=== PATIENT | female | born 1930 | race African-American/Black ===

== ENCOUNTER 2018-04-16 12:49 | Emergency (ER) | payer MEDICARE ==
[~2018-04-16] VITALS: Ht 160 cm; Wt 48.5 kg
[~2018-04-16 12:49] MED LIST: AMLO10TA2 PO; ASPI-630 PO; FURO40TA4 PO; HYDR-971 PO; LACT1CAP25 PO; LOSA50TA6 PO; METO-239 PO; PANT40TA5 PO; POTA20TA82 PO; SIMV20TA3 PO; TIMO5SOL10 OP; TRAV5DRO OP
[2018-04-16 14:12] LABS: BASO % 1 % (0-3); EOS # 0.1 x10^3/uL (0.0-0.7); EOS % 2 % (0-3); HEMOGLOBIN 9.9 g/dL (12.0-15.5); LYMPH # 0.6 x10^3/uL (1.0-4.8); LYMPH % 12 % (24-48); MEAN CORPUSCULAR HEMOGLOBIN 29 pg (25-35); MEAN CORPUSCULAR HGB CONC 33 g/dL (31-37); MEAN CORPUSCULAR VOLUME 89 fL (79-100); MONO # 0.4 x10^3/uL (0.0-1.1); MONO % 7 % (0-9); NEUT # 4.2 x10^3uL (1.8-7.7); NEUT % 78 % (31-73); PLATELET COUNT 285 x10^3/uL (140-400); RED BLOOD COUNT 3.36 x10^6/uL (3.50-5.40); RED CELL DISTRIBUTION WIDTH 15.9 % (11.5-14.5); WHITE BLOOD COUNT 5.4 x10^3/uL (4.0-11.0)
[2018-04-16 14:14] LABS: CALCIUM 8.8 mg/dL (8.5-10.1); CREATININE 1.1 mg/dL (0.6-1.0); GFR 56.9; POTASSIUM 3.3 mmol/L (3.5-5.1)
--- NOTE | 2018-04-16 14:14 | EKG ---
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 History: : 1930 Requested By: FLOYD ISSA Order Number: [id number] Reading MD: Vasile Cuello MD Measurements Intervals Thornton Rate: 92 P: 26 PA: 140 QRS: -119 QRSD: 152 T: 81 QT: 412 QTc: 515 Interpretive Statements SINUS RHYTHM V-PACING Electronically Signed On 04-16-2018 17:15:29 CDT by Vasile Cuello MD
[2018-04-16 14:20] LABS: ALBUMIN 2.9 g/dL (3.4-5.0); ALBUMIN/GLOBULIN RATIO 0.7 (1.0-1.7); TOTAL BILIRUBIN 0.2 mg/dL (0.2-1.0); TOTAL PROTEIN 7.2 g/dL (6.4-8.2)
--- NOTE | 2018-04-16 14:29 | RAD ---
Chest, 2 views, 04/16/2018: HISTORY: Left-sided chest pain and soreness Comparison is made to a study from 04/08/2014. The heart is mildly enlarged. There is calcific plaquing and tortuosity of the thoracic aorta. The pulmonary vascularity is normal. No pulmonary infiltrate is seen. There is no evidence of pleural fluid or pneumothorax. There are old bilateral rib fractures. There are scattered spurs in the spine. IMPRESSION: 1. Mild cardiomegaly and aortic atherosclerosis. 2. No acute infiltrates. Electronically signed by: Darren Schilling MD (04/16/2018 2:25 PM) [facility]
[2018-04-16 15:30] VITALS: BP 152/78
--- NOTE | 2018-04-16 15:45 | PHYS DOC ---
Past Medical History Past Medical History: Arthritis, Hypertension Past Surgical History: Hysterectomy, Pacemaker Additional Past Surgical Histo: GALLSTONES Alcohol Use: None Drug Use: None Adult General Chief Complaint Chief Complaint: CHEST PAIN HPI HPI Patient is a 87 year old F who presents with chest pain about 1 week ago. Patient reports her symptoms lasted for about 4 hours. Since then, she has pain with certain movements and deep breathing. She denies any shortness breath or diaphoresis. She does have a history of cardiomyopathy with a pacemaker. Review of Systems Review of Systems Constitutional: Denies fever or chills [] Respiratory: Denies cough or shortness of breath [] Cardiovascular: Reports chest pain with deep breath or movement GI: Denies abdominal pain, nausea, vomiting : Denies dysuria or hematuria [] Musculoskeletal: Denies back pain or joint pain [] Integument: Denies rash or skin lesions [] Neurologic: Denies headache, focal weakness or sensory changes [] All other systems were reviewed and found to be within normal limits, except as documented in this note. Allergies Allergies Allergies Coded Allergies Type Severity Reaction Last Updated Verified No Known Drug Allergies 03/06/14 No Physical Exam Physical Exam Constitutional: Well developed, well nourished, no acute distress, non-toxic appearance. [] HENT: Normocephalic, atraumatic Eyes: PERRLA, EOMI, conjunctiva normal, no discharge. [] Neck: Normal range of motion, no tenderness, supple, no stridor. [] Cardiovascular:Heart rate regular rhythm, no murmur [] Lungs & Thorax: Bilateral breath sounds clear to auscultation [] Abdomen: Bowel sounds normal, soft, no tenderness, no masses, no pulsatile masses. [] Skin: Warm, dry, no erythema, no rash. [] Neurologic: Alert and oriented X 3, normal motor function, normal sensory function, no focal deficits noted. [] Psychologic: Affect normal, judgement normal, mood normal. [] Current Patient Data Vital Signs Vital Signs Date Time Temp Pulse Resp B/P (MAP) Pulse Ox O2 Delivery O2 Flow Rate FiO2 04/16/18 15:30 80 18 152/78 (102) 100 Room Air 04/16/18 12:49 98.3 98.3 Lab Values Laboratory Tests Test 04/16/18 13:36 White Blood Count 5.4 x10^3/uL (4.0-11.0) Red Blood Count 3.36 x10^6/uL (3.50-5.40) L Hemoglobin 9.9 g/dL (12.0-15.5) L Hematocrit 30.0 % (36.0-47.0) L Mean Corpuscular Volume 89 fL (79-100) Mean Corpuscular Hemoglobin 29 pg (25-35) Mean Corpuscular Hemoglobin Concent 33 g/dL (31-37) Red Cell Distribution Width 15.9 % (11.5-14.5) H Platelet Count 285 x10^3/uL (140-400) Neutrophils (%) (Auto) 78 % (31-73) H Lymphocytes (%) (Auto) 12 % (24-48) L Monocytes (%) (Auto) 7 % (0-9) Eosinophils (%) (Auto) 2 % (0-3) Basophils (%) (Auto) 1 % (0-3) Neutrophils # (Auto) 4.2 x10^3uL (1.8-7.7) Lymphocytes # (Auto) 0.6 x10^3/uL (1.0-4.8) L Monocytes # (Auto) 0.4 x10^3/uL (0.0-1.1) Eosinophils # (Auto) 0.1 x10^3/uL (0.0-0.7) Basophils # (Auto) 0.0 x10^3/uL (0.0-0.2) Sodium Level 140 mmol/L (136-145) Potassium Level 3.3 mmol/L (3.5-5.1) L Chloride Level 106 mmol/L (98-107) Carbon Dioxide Level 23 mmol/L (21-32) Anion Gap 11 (6-14) Blood Urea Nitrogen 18 mg/dL (7-20) Creatinine 1.1 mg/dL (0.6-1.0) H Estimated GFR (Cockcroft-Gault) 56.9 BUN/Creatinine Ratio 16 (6-20) Glucose Level 95 mg/dL (70-99) Calcium Level 8.8 mg/dL (8.5-10.1) Total Bilirubin 0.2 mg/dL (0.2-1.0) Aspartate Amino Transferase (AST) 14 U/L (15-37) L Alanine Aminotransferase (ALT) 10 U/L (14-59) L Alkaline Phosphatase 78 U/L (46-116) Troponin I Quantitative < 0.017 ng/mL (0.000-0.055) Total Protein 7.2 g/dL (6.4-8.2) Albumin 2.9 g/dL (3.4-5.0) L Albumin/Globulin Ratio 0.7 (1.0-1.7) L Laboratory Tests 04/16/18 13:36 Laboratory Tests 04/16/18 13:36 EKG EKG [] Radiology/Procedures Radiology/Procedures PATIENT: RAYNA MALLOY MACCOUNT: [id number]#: [id number] : 1930 LOCATION: ER AGE: 87 SEX: F EXAM STATUS: REG ER ORD. PHYSICIAN: FLOYD ISSA APRN REASON: chest pain PROCEDURE: CHEST PA & LATERAL Chest, 2 views, 04/16/2018: HISTORY: Left-sided chest pain and soreness Comparison is made to a study from 04/08/2014. The heart is mildly enlarged. There is calcific plaquing and tortuosity of the thoracic aorta. The pulmonary vascularity is normal. No pulmonary infiltrate is seen. There is no evidence of pleural fluid or pneumothorax. There are old bilateral rib fractures. There are scattered spurs in the spine. IMPRESSION: 1. Mild cardiomegaly and aortic atherosclerosis. 2. No acute infiltrates. Electronically signed by: Darren Rubio MD (04/16/2018 2:25 PM) [facility] DICTATED and SIGNED BY: DARREN RUBIO MD DATE: 04/16/18 1421 [] Course & Med Decision Making Course & Med Decision Making Pertinent Labs and Imaging studies reviewed. (See chart for details) Plan: offered admission, patient declined. Home to rest, f/u with PCP, return precautions reviewed Marcy Disclaimer Dragon Disclaimer This electronic medical record was generated, in whole or in part, using a voice recognition dictation system. Departure Departure Impression: Primary Impression: Chest pain Disposition: 01 HOME, SELF-CARE Condition: STABLE Referrals: NO PCP (PCP) Patient Instructions: Chest Pain (Nonspecific) Additional Instructions: Follow up with your direct care provider Problem Qualifiers Primary Impression: Chest pain Chest pain type: other chest pain Qualified Codes: R07.89 - Other chest pain FLOYD ISSA GRANITE POLISHER Apr 16, 2018 15:44
[2018-04-16] MEDS ORDERED: SIMV40TA3 PO (15:53)
[2018-04-16] MEDS ORDERED: CLOP75TA PO (15:53)
[2018-04-16] MEDS ORDERED: AMOX500C PO (15:53)
[2018-04-16] MEDS ORDERED: NITR0.4T22 SL (15:53)
[2018-04-16] MEDS ORDERED: FURO40TA4 PO (15:53)
[2018-04-16] MEDS ORDERED: ACET-706 PO (15:53)
== END 2018-04-16 16:00 | disposition home or self-care (01) ==
LOC: ER 12:49
DX: R07.1 Chest pain on breathing (principal); I70.0 Atherosclerosis of aorta; I51.7 Cardiomegaly; M19.90 Unspecified osteoarthritis, unspecified site; I10 Essential (primary) hypertension; Z95.0 Presence of cardiac pacemaker
CPT/HCPCS: 36415; 71046; 80053; 84484; 85025; 93005; 99285

== ENCOUNTER 2019-04-23 16:08 | Inpatient (IN) | payer MEDICARE, MEDICAID ==
[~2019-04-23] VITALS: Ht 160 cm; Wt 52.7 kg
[~2019-04-23 16:08] MED LIST changes: +ACET-706 PO; -AMLO10TA2 PO; +AMLO10TA8 PO; +AMOX500C PO; +CLOP75TA PO; +HYDR-3164 PO; -HYDR-971 PO; +LOSA-73 PO; -LOSA50TA6 PO; +NITR0.4T22 SL; -PANT40TA5 PO; +PANT40TA77 PO; +SIMV40TA3 PO
--- NOTE | 2019-04-23 17:32 | RAD ---
CT HEAD AND CERVICAL SPINE WO Date: 04/23/2019 4:27 PM Clinical Indication: Headache for 2 weeks, neck pain and popping sensation Comparison: None. Technique: 5 mm axial tomographic images were obtained of the head without contrast. These were viewed on brain and bone windows. CT imaging of the cervical spine was performed without contrast. Coronal and sagittal reformatted images were performed. One or more of the following dose reduction techniques were utilized: Automated exposure control (AEC), Adjustment of mA and/or kV according to patient size, Use of iterative reconstruction technique such as ASiR, CT scan done according to ALARA and image gently/image wisely HEAD FINDINGS: Moderate nonspecific periventricular hypoattenuation is most consistent with chronic small vessel ischemic disease. Mild generalized cerebral and cerebellar volume loss. No intra- or extra-axial mass or fluid collection. No acute hemorrhage. The ventricles are normal in size, shape, and morphology. The bo-white matter junction is normal. The basilar cisterns are patent. The visualized paranasal sinuses are normal. The visualized portions of the orbits and globes are normal. The mastoid air cells are clear. No aggressive osseous lesion or fracture. CERVICAL SPINE FINDINGS: Transverse fracture through the base of the odontoid process with 2 mm superior distraction, suspected to be acute. No significant retropulsion of the odontoid process fracture fragment. No widening of the atlantodental interval. Straightening of the cervical lordosis. Severe multilevel degenerative disc height loss. Multilevel disc protrusions and marginal osteophytes results in multilevel mild to moderate spinal canal stenosis. Multilevel uncovertebral and facet arthrosis results in multilevel moderate and severe neural foraminal narrowing. The thyroid gland is normal. No cervical lymphadenopathy. The visualized aerodigestive tract is unremarkable. The visualized lung apices are clear. IMPRESSION: 1. Suspected acute transverse fracture through the base of the odontoid process with 2 mm superior distraction. No significant retropulsion of the odontoid process fracture fragment. No widening of the atlantodental interval. 2. No acute intracranial process. 3. Moderate chronic small vessel ischemic disease and mild generalized cerebral and cerebellar volume loss. FOR INTERNAL CODING PURPOSES Findings were called to the emergency department at 5:25 PM on 04/23/2019. RESULT CODE: (C) Electronically signed by: Alonso Woods MD (04/23/2019 5:29 PM) [facility]
--- NOTE | 2019-04-23 18:11 | PHYS DOC ---
Past Medical History Past Medical History: Arthritis, CHF, Hypertension Past Surgical History: Hysterectomy, Pacemaker Additional Past Surgical Histo: GALLSTONES Alcohol Use: Occasionally (2-3 drinks a week) Drug Use: None Adult General Chief Complaint Chief Complaint: EARACHE/EAR PAIN HPI HPI Patient is a 88 year old AA female, accompanied by her daughter, who presents to the emergency Department today with complaints of neck popping and a headache for the last 2 weeks. Patient denies any recent injury, fall, or trauma. She denies any vision changes, nausea, vomiting, sensitivity to light, numbness, tingling, or weakness. She states that occasionally when she lies down her ears hurt. She denies any bleeding or drainage from her ears. Also denies any fevers. Pt denies any pain at this time. Review of Systems Review of Systems Constitutional: Denies fever or chills [] Eyes: Denies change in visual acuity, redness, or eye pain [] HENT: Denies nasal congestion or sore throat; see HPI [] Respiratory: Denies cough or shortness of breath [] Cardiovascular: No additional information not addressed in HPI [] GI: Denies abdominal pain, nausea, vomiting, or diarrhea [] : Denies dysuria or hematuria [] Musculoskeletal: Denies back pain or joint pain [] Integument: Denies rash or skin lesions [] Neurologic: Denies focal weakness or sensory changes; see HPI Complete systems were reviewed and found to be within normal limits, except as d ocumented in this note. Allergies Allergies Allergies Coded Allergies Type Severity Reaction Last Updated Verified No Known Drug Allergies 03/06/14 No Physical Exam Physical Exam Constitutional: Well developed, well nourished, no acute distress, non-toxic appearance, hard of hearing. [] HENT: Normocephalic, atraumatic, bilateral external ears normal, left TM normal, R TM obstructed by cerumen impaction, oropharynx moist, no oral exudates, nose normal. [] Eyes: PERRLA, EOMI, conjunctiva normal, no discharge. [] Neck: Normal range of motion, no stridor. [] Cardiovascular:Heart rate regular rhythm Lungs & Thorax: Bilateral breath sounds clear to auscultation [] Skin: Warm, dry, no erythema, no rash. [] Back: No tenderness Extremities: No tenderness, no cyanosis, no clubbing, ROM intact, no edema. [] Neurologic: Alert and oriented X 3, normal motor function, normal sensory f unction, no focal deficits noted. [] Psychologic: Affect normal, judgement normal, mood normal. [] Current Patient Data Vital Signs Vital Signs Date Time Temp Pulse Resp B/P (MAP) Pulse Ox O2 Delivery O2 Flow Rate FiO2 04/23/19 16:27 97.9 60 6 180/84 (116) 99 Room Air 97.9 Lab Values Laboratory Tests Test 04/23/19 18:34 White Blood Count 3.6 x10^3/uL (4.0-11.0) L Red Blood Count 3.95 x10^6/uL (3.50-5.40) Hemoglobin 12.2 g/dL (12.0-15.5) Hematocrit 36.3 % (36.0-47.0) Mean Corpuscular Volume 92 fL (79-100) Mean Corpuscular Hemoglobin 31 pg (25-35) Mean Corpuscular Hemoglobin Concent 34 g/dL (31-37) Red Cell Distribution Width 15.0 % (11.5-14.5) H Platelet Count 209 x10^3/uL (140-400) Neutrophils (%) (Auto) 58 % (31-73) Lymphocytes (%) (Auto) 27 % (24-48) Monocytes (%) (Auto) 10 % (0-9) H Eosinophils (%) (Auto) 5 % (0-3) H Basophils (%) (Auto) 1 % (0-3) Neutrophils # (Auto) 2.1 x10^3/uL (1.8-7.7) Lymphocytes # (Auto) 1.0 x10^3/uL (1.0-4.8) Monocytes # (Auto) 0.3 x10^3/uL (0.0-1.1) Eosinophils # (Auto) 0.2 x10^3/uL (0.0-0.7) Basophils # (Auto) 0.0 x10^3/uL (0.0-0.2) Prothrombin Time 12.7 SEC (11.7-14.0) Prothrombin Time INR 1.0 (0.8-1.1) Activated Partial Thromboplast Time 32 SEC (24-38) Sodium Level 143 mmol/L (136-145) Potassium Level 4.5 mmol/L (3.5-5.1) Chloride Level 105 mmol/L (98-107) Carbon Dioxide Level 29 mmol/L (21-32) Anion Gap 9 (6-14) Blood Urea Nitrogen 21 mg/dL (7-20) H Creatinine 1.3 mg/dL (0.6-1.0) H Estimated GFR (Cockcroft-Gault) 46.8 BUN/Creatinine Ratio 16 (6-20) Glucose Level 80 mg/dL (70-99) Calcium Level 8.7 mg/dL (8.5-10.1) Total Bilirubin 0.3 mg/dL (0.2-1.0) Aspartate Amino Transferase (AST) 18 U/L (15-37) Alanine Aminotransferase (ALT) 10 U/L (14-59) L Alkaline Phosphatase 87 U/L (46-116) Total Protein 7.1 g/dL (6.4-8.2) Albumin 3.3 g/dL (3.4-5.0) L Albumin/Globulin Ratio 0.9 (1.0-1.7) L Laboratory Tests 04/23/19 18:34 Laboratory Tests 04/23/19 18:34 EKG EKG [] Radiology/Procedures Radiology/Procedures PROCEDURE: CT HEAD AND CERVICAL SPINE WO CT HEAD AND CERVICAL SPINE WO Date: 04/23/2019 4:27 PM Clinical Indication: Headache for 2 weeks, neck pain and popping sensation Comparison: None. Technique: 5 mm axial tomographic images were obtained of the head without contrast. These were viewed on brain and bone windows. CT imaging of the cervical spine was performed without contrast. Coronal and sagittal reformatted images were performed. One or more of the following dose reduction techniques were utilized: Automated exposure control (AEC), Adjustment of mA and/or kV according to patient size, Use of iterative reconstruction technique such as ASiR, CT scan done according to ALARA and image gently/image wisely HEAD FINDINGS: Moderate nonspecific periventricular hypoattenuation is most consistent with chronic small vessel ischemic disease. Mild generalized cerebral and cerebellar volume loss. No intra- or extra-axial mass or fluid collection. No acute hemorrhage. The ventricles are normal in size, shape, and morphology. The bo-white matter junction is normal. The basilar cisterns are patent. The visualized paranasal sinuses are normal. The visualized portions of the orbits and globes are normal. The mastoid air cells are clear. No aggressive osseous lesion or fracture. CERVICAL SPINE FINDINGS: Transverse fracture through the base of the odontoid process with 2 mm superior distraction, suspected to be acute. No significant retropulsion of the odontoid process fracture fragment. No widening of the atlantodental interval. Straightening of the cervical lordosis. Severe multilevel degenerative disc height loss. Multilevel disc protrusions and marginal osteophytes results in multilevel mild to moderate spinal canal stenosis. Multilevel uncovertebral and facet arthrosis results in multilevel moderate and severe neural foraminal narrowing. The thyroid gland is normal. No cervical lymphadenopathy. The visualized aerodigestive tract is unremarkable. The visualized lung apices are clear. IMPRESSION: 1. Suspected acute transverse fracture through the base of the odontoid process with 2 mm superior distraction. No significant retropulsion of the odontoid process fracture fragment. No widening of the atlantodental interval. 2. No acute intracranial process. 3. Moderate chronic small vessel ischemic disease and mild generalized cerebral and cerebellar volume loss. FOR INTERNAL CODING PURPOSES Findings were called to the emergency department at 5:25 PM on 04/23/2019. RESULT CODE: (C) [] Course & Med Decision Making Course & Med Decision Making Pertinent Labs and Imaging studies reviewed. (See chart for details) Dx: acute C2 fracture of the odontoid process Pt presented for complaints of a posterior headache, neck popping, and sensation of fluid trickling down the back of her scalp for 2 weeks. 1726- Ct head and neck revealed an acute fx of C2 of the odontoid process Per Dr. Woods radiologist. Pt placed in C-collar after notified of this result by the radiologist. CBC unremarkable, Pt/INR WNL, CMP: elevated BUN 21 and Claims Administrator 1.[address] Ruvalcaba spoke with Sabra Cain's nurse practitioner and advised of pt in the ER. Pt is stable and neurovascularly intact without deficits. Will admit patient to hospitalist and consult Dr. Cain. [address] Baltazar who is the admitting physician, and care was assumed following discussion of patient. Patient's vital signs are stable. Patient remains afebrile, appears nontoxic, respirations even and unlabored. Patient will be admitted to the med/surg floor. Patient's case and plan of care also discussed with Dr. Ruvalcaba. Marcy Disclaimer Marcy Disclaimer This electronic medical record was generated, in whole or in part, using a voice recognition dictation system. Departure Departure Impression: Primary Impression: C2 cervical fracture Disposition: ADMITTED INPATIENT Admitting Physician: JERRY JONES) Condition: STABLE Referrals: UNKNOWN PCP NAME (PCP) Problem Qualifiers Primary Impression: C2 cervical fracture Encounter type: initial encounter Fracture type: closed Fracture morphology: other dens Fracture alignment: nondisplaced Qualified Codes: S12.121A - Other nondisplaced dens fracture, initial encounter for closed fracture PORSCHE MERAZ SENIOR CLINICAL DATA ANALYST Apr 23, 2019 18:10
[2019-04-23 18:48] LABS: BASO % 1 % (0-3); EOS # 0.2 x10^3/uL (0.0-0.7); EOS % 5 % (0-3); HEMATOCRIT 36.3 % (36.0-47.0); HEMOGLOBIN 12.2 g/dL (12.0-15.5); LYMPH % 27 % (24-48); MEAN CORPUSCULAR HEMOGLOBIN 31 pg (25-35); MEAN CORPUSCULAR HGB CONC 34 g/dL (31-37); MEAN CORPUSCULAR VOLUME 92 fL (79-100); MONO # 0.3 x10^3/uL (0.0-1.1); MONO % 10 % (0-9); NEUT # 2.1 x10^3/uL (1.8-7.7); NEUT % 58 % (31-73); PLATELET COUNT 209 x10^3/uL (140-400); RED BLOOD COUNT 3.95 x10^6/uL (3.50-5.40); WHITE BLOOD COUNT 3.6 x10^3/uL (4.0-11.0)
[2019-04-23 18:52] LABS: PROTHROMBIN TIME PATIENT 12.7 SEC (11.7-14.0)
[2019-04-23 18:54] LABS: CALCIUM 8.7 mg/dL (8.5-10.1); CREATININE 1.3 mg/dL (0.6-1.0); GFR 46.8; POTASSIUM 4.5 mmol/L (3.5-5.1)
[2019-04-23 18:59] LABS: ALBUMIN 3.3 g/dL (3.4-5.0); ALBUMIN/GLOBULIN RATIO 0.9 (1.0-1.7); TOTAL BILIRUBIN 0.3 mg/dL (0.2-1.0); TOTAL PROTEIN 7.1 g/dL (6.4-8.2)
[2019-04-23] MEDS ORDERED: NITROGLYCERIN SUBLINGUAL 0.4 MG BOTTLE OF 25. SL PRN (20:45)
[2019-04-23] MEDS ORDERED: TEMAZEPAM 7.5 MG CAPSULE PO PRN (20:45)
[2019-04-23] MEDS ORDERED: ACETAMINOPHEN 500 MG TABLET PO PRN (20:45)
[2019-04-23] MEDS ORDERED: ACETAMINOPHEN/CODEINE 300/30MG TABLET. PO PRN (20:45)
[2019-04-23] MEDS ORDERED: ONDANSETRON PF 4 MG/2 ML VIAL. IV PRN (20:45)
[2019-04-23] MEDS ORDERED: fentaNYL PF VIAL 100 MCG/2 ML VIAL IV PRN (20:45)
[2019-04-23] MEDS ORDERED: hydrALAZINE 20 MG/ML VIAL. IVP PRN (20:45)
[2019-04-23] MEDS ORDERED: cloNIDine HCL 0.1 MG TABLET PO PRN (20:45)
[2019-04-23] MEDS ORDERED: HYDROcodone/APAP 5/325MG 1 TAB TABLET PO PRN (20:45)
[2019-04-23] MEDS ORDERED: ACETAMINOPHEN WITH CODEINE PO PRN (20:45)
[2019-04-23] MEDS ORDERED: TRAVOPROST OP SCH (21:00)
[2019-04-23] MEDS ORDERED: IV NORMAL SALINE 1000ML BAG 1,000 ML IV ONE (21:00)
[2019-04-23] MEDS ORDERED: SIMVASTATIN 40 MG TABLET. PO SCH (21:00)
[2019-04-23 23:00] VITALS: BP 181/81
[2019-04-24 03:00] VITALS: BP 200/94
[2019-04-24 07:00] VITALS: BP 170/76
[2019-04-24] MEDS ORDERED: PANTOPRAZOLE 40 MG TABLET.DR. PO SCH (07:30)
[2019-04-24] MEDS ORDERED: FUROSEMIDE 40 MG TABLET. PO SCH (09:00)
[2019-04-24] MEDS ORDERED: METOPROLOL SUCC 24HR ER 25 MG TAB.ER.24H. PO SCH (09:00)
[2019-04-24] MEDS ORDERED: LOSARTAN POTASSIUM 50 MG TABLET. PO SCH (09:00)
[2019-04-24] MEDS ORDERED: TIMOLOL MALEATE OP SCH (09:00)
[2019-04-24] MEDS ORDERED: amLODIPine BESYLATE 10 MG TABLET PO SCH (09:00)
--- NOTE | 2019-04-24 09:37 | NUR ---
SW following pt for dc planning. Chart reviewed and pt lives at home with family. PT/OT pending. Neuro Sx consulted. Will continue to follow.
[2019-04-24 11:00] VITALS: BP 155/54
--- NOTE | 2019-04-24 13:51 | HP ---
ADMIT DATE: 04/23/2019 CHIEF COMPLAINT: Neck popping and headaches for 2 weeks. HISTORY OF PRESENT ILLNESS: The patient is a pleasant 88-year-old female who presented to the ER with the above chief complaint. Basically, she has been having some neck pain and headaches. It has been occurring for 2 weeks. She feels like she can hear her neck popping at times. She denies any falls. Interestingly, we did a CT of the neck and it showed a suspected acute transverse fracture through the base of the odontoid with 2 mm superior distraction. The patient is being admitted. We consulted Neurosurgery. PAST MEDICAL HISTORY: Arthritis, CHF, hypertension, hysterectomy, pacemaker and gallstones. ALLERGIES: None. FAMILY HISTORY: Diabetes. SOCIAL HISTORY: She does not drink, smoke or take drugs. MEDICATIONS: Reviewed, please refer to the MRAD. REVIEW OF SYSTEMS: GENERAL: No history of weight change, weakness or fevers. SKIN: No bruising, hair changes or rashes. EYES: No blurred, double or loss of vision. NOSE AND THROAT: No history of nosebleeds, hoarseness or sore throat. HEAD AND NECK: She complains of neck popping and neck pain and headaches. HEART: No history of palpitations, chest pain or shortness of breath on exertion. LUNGS: Denies cough, hemoptysis, wheezing or shortness of breath. GASTROINTESTINAL: Denies changes in appetite, nausea, vomiting, diarrhea or constipation. GENITOURINARY: No history of frequency, urgency, hesitancy or nocturia. NEUROLOGIC: Denies history of numbness, tingling, tremor or weakness. PSYCHIATRIC: No history of panic, anxiety or depression. ENDOCRINE: No history of heat or cold intolerance, polyuria or polydipsia. EXTREMITIES: Denies muscle weakness, joint pain, pain on walking or stiffness. PHYSICAL EXAMINATION: VITALS: Within normal limits and are stable. GENERAL: She is sitting in a chair with a C-collar on. HEENT: Head is normocephalic, atraumatic, pupils were equally round and reactive to light and accommodation. Note that she does have a C-collar on. NECK: Supple, no JVD, no thyromegaly was noted. LUNGS: Clear to auscultation in all lung michaels without rhonchi or wheezing. HEART: RRR, S1, S2 present. Peripheral pulses intact, no obvious murmurs were noted. ABDOMEN: Soft, nontender. Positive bowel sounds no organomegaly, normal bowel sounds. EXTREMITIES: Without any cyanosis, clubbing, or edema. Pedal pulses intact, Homans sign is negative. NEUROLOGIC: Normal speech, normal tone. A & O x 3, moves all extremities, no obvious focal deficits. PSYCHIATRIC: Normal affect, normal mood. Stable. SKIN: No ulcerations or rashes, good skin turgor, no jaundice. VASCULAR: Good capillary refill, neurovascular bundle appears to be intact. LABORATORY DATA: White count is 3.6. Electrolytes are normal other than a creatinine of 1.3. ASSESSMENT AND PLAN: Odontoid fracture of undetermined etiology. The patient has been admitted. We will consult Neurosurgery. Continue the C-collar. Physical therapy, occupational therapy if possible and if okay with Neurosurgery. Home meds, deep venous thrombosis prophylaxis. FULL CODE. DARLING PETERSON DO DR: JUAN CARLOS/timmy JOB#: [id number] / [id number]
[2019-04-24 15:00] VITALS: BP 160/67
--- NOTE | 2019-04-24 15:00 | NUR ---
Patient's family upset that neurosurgeon has not seen patient yet. I called office and was told approximately [address] Cain should be rounding. Family stated that they would leave AMA if patient is not seen by 5pm. Will continue to monitor.
--- NOTE | 2019-04-24 17:41 | NUR ---
Discharge Note: RAYNA MALLOY Discharge instructions and discharge home medications reviewed with Patient and patient's daughter and a copy given. All questions have been answered and understanding verbalized. The following instructions and handouts were given: discharge instructions, education and follow up recommendations. Discontinued lines and drains: Peripheral IV discontinued intact. Patient discharged to Home or Self Care with Family Member via Wheelchair off unit by [facility].
[2019-04-24] MEDS ORDERED: LATANOPROST 0.005% OPHTH SOLUTION 2.5ML BOTTLE. OU SCH (21:00)
== END 2019-04-24 17:43 | disposition home or self-care (01) | DRG 552 ==
LOC: ER 16:08 → 5 NORTH 19:53 → OBSVTOIN 20:26
PROVIDERS: ADMIT Internal Medicine; ATTEND Internal Medicine
DX: S12.110A Anterior displaced Type II dens fracture, initial encounter for closed fracture (principal); I11.0 Hypertensive heart disease with heart failure; I50.9 Heart failure, unspecified; M19.90 Unspecified osteoarthritis, unspecified site; Z95.0 Presence of cardiac pacemaker; Y93.89 Activity, other specified; Y92.89 Other specified places as the place of occurrence of the external cause; Y99.8 Other external cause status; Z90.710 Acquired absence of both cervix and uterus; Z83.3 Family history of diabetes mellitus
CPT/HCPCS: 36415; 70450; 72125; 80053; 85025; 85610; 85730; G0379; J0360; J7030; G0378

== ENCOUNTER 2020-03-09 14:51 | Emergency (ER) | payer MEDICAID, MEDICARE, OTHER ==
[~2020-03-09] VITALS: Ht 162.6 cm; Wt 54.0 kg
[~2020-03-09 14:51] MED LIST changes: +POTA20TA4 PO; -POTA20TA82 PO; +SIMV20TA18 PO; -SIMV20TA3 PO; +SIMV40TA18 PO; -SIMV40TA3 PO
[2020-03-09 15:55] LABS: BASO % 1 % (0-3); EOS # 0.2 x10^3/uL (0.0-0.7); EOS % 6 % (0-3); HEMATOCRIT 36.3 % (36.0-47.0); HEMOGLOBIN 12.2 g/dL (12.0-15.5); LYMPH # 0.7 x10^3/uL (1.0-4.8); LYMPH % 23 % (24-48); MEAN CORPUSCULAR HEMOGLOBIN 31 pg (25-35); MEAN CORPUSCULAR HGB CONC 34 g/dL (31-37); MEAN CORPUSCULAR VOLUME 93 fL (79-100); MONO # 0.3 x10^3/uL (0.0-1.1); MONO % 10 % (0-9); NEUT % 60 % (31-73); PLATELET COUNT 232 x10^3/uL (140-400); RED CELL DISTRIBUTION WIDTH 14.5 % (11.5-14.5); WHITE BLOOD COUNT 3.3 x10^3/uL (4.0-11.0)
[2020-03-09 16:02] LABS: CALCIUM 8.1 mg/dL (8.5-10.1); CREATININE 1.3 mg/dL (0.6-1.0); GFR 46.7
[2020-03-09 16:08] LABS: ALBUMIN 2.9 g/dL (3.4-5.0); ALBUMIN/GLOBULIN RATIO 0.9 (1.0-1.7); TOTAL BILIRUBIN 0.2 mg/dL (0.2-1.0); TOTAL PROTEIN 6.3 g/dL (6.4-8.2)
--- NOTE | 2020-03-09 16:49 | RAD ---
Exam: CT head and cervical spine without contrast INDICATION: Fall, syncope TECHNIQUE: Sequential axial images through the head and cervical spine were obtained without the administration of IV contrast. Comparisons: 04/23/2019 FINDINGS: Head: No focal parenchymal lesion or hemorrhage is identified. There is no midline shift or sulcal effacement. No acute vascular territory infarction is identified. [place] distinction is preserved. The ventricular system is within normal limits without compression hydrocephalus. The basal cisterns are well maintained. Mild extra cranial soft tissue scalp contusion overlying the frontal region. The visualized portions of the paranasal sinuses and mastoid air cells are well-pneumatized. No acute fractures. Cervical spine: Redemonstrated fracture at the base of the dens not significant changed compared to the prior exam. There is anterior listhesis of C1 on C2 measuring 5 mm which is new when compared to the prior study. Vertebral body heights are well-maintained. There is straightening of the cervical spine which may be positional. Acute fracture to the cervical spine is not identified. 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 Visualized paraspinal soft tissues are unremarkable. IMPRESSION: 1. Mild extra cranial soft tissue scalp contusion overlying the frontal region without underlying osseous or intracranial abnormality identified. 2. Redemonstration of fracture through the base of the dens of C2. Since prior exam there is a increased anterolisthesis of C1 on C2 measuring approximately 5 mm. 3. No acute fracture identified in the cervical spine. Exposure: One or more of the following in the visualized dose reduction techniques were utilized for this examination: 1. Automated exposure control 2. Adjustment of the MA and/or KV according to patient size Use of iterative of reconstructive technique Electronically signed by: Khai Guerra MD (03/09/2020 4:46 PM) [id number]
--- NOTE | 2020-03-09 16:59 | RAD ---
CT CHEST ABDOMEN PELVIS WO Indication: Fall, syncope, pain Technique: Noncontrast CT imaging was performed of the chest, abdomen, pelvis, multiplanar reconstruction images submitted. One or more of the following individualized dose reduction techniques were utilized for this examination: 1. Automated exposure control 2. Adjustment of the mA and/or kV according to patient size 3. Use of iterative reconstruction technique. Comparison: None CHEST: Findings: There is motion degradation. There is small dependent left pleural effusion, density measurements suggestive of more simple fluid about 12 Hounsfield units. There is no pneumothorax. Heart is enlarged. There is prominent coronary calcification. Thoracic aortic caliber is within normal limits, scattered plaque. There is dual lead left electronic cardiac device. No significantly enlarged nodes are identified of the chest. There is no lobar consolidation, mild compressive atelectasis left lower lobe near effusion. Thoracic vertebral body stature is overall maintained. There is multilevel thoracic degenerative disc disease. There are minimally displaced left posterior fifth and sixth rib fractures and nondisplaced left posterior seventh rib fracture. IMPRESSION: 1. There are minimally displaced acute left posterior fifth and sixth rib fractures and nondisplaced left posterior seventh rib fracture. There is small dependent left pleural effusion. 2. There is coronary calcification. Abdomen pelvis FINDINGS: Accurate evaluation of the abdominal visceral organs is limited without intravenous contrast, no obvious focal abnormality identified of the liver, spleen, or pancreas. There is no significant hydronephrosis of either kidney. Some calcifications of the renal hilar regions bilaterally are likely in part vascular in etiology. However there are also some foci of likely in the renal collecting systems including a couple of foci inferior and the left about 1 to 2 mm and at least one on the right probably in the collecting system about 2 to 3 mm. There is exophytic 19 mm focus of density medial right kidney with density measurements of a cyst 13 Hounsfield units. There is atherosclerotic calcification of the abdominal aorta and branches. There is also more significant stenosis of the distal left common iliac artery/proximal internal and external iliac arteries. There is cholelithiasis. There is no significant adrenal nodularity. Accurate evaluation of bowel is limited without oral contrast. Bowel is not significantly dilated. There is no free air or significant free fluid. There is scattered colonic diverticulosis. There is advanced degenerative disc disease variably L3-4 through L5-S1 and also at T12-L1, to a lesser degree at L2-3. There is grade 1 anterior spondylolisthesis L2-3 through L5-S1, multilevel lumbar facet degenerative change. There is variable lateral recess stenosis L2-3 through L4-5 also multilevel lumbar neural foramina compromise greatest on the right at L4-5 and L5-S1 and on the left L5-3 through L5-S1. There is also inferior thoracic neural foramina compromise. There is mild reverse S-shaped curvature of the lumbar spine. There is also some atherosclerotic calcification of the visualized arteries in the legs bilaterally. 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 There is mild superior height loss of T11 otherwise difficult to characterize. IMPRESSION: 1. There is mild superior height loss of T11 vertebral body of uncertain chronicity and otherwise difficult to accurately characterize. Otherwise no significant acute abnormality is identified of the abdomen or pelvis. 2. There are small left renal calculi. 3. Calcified plaque results in stenosis of the distal left common iliac artery/origins left internal and external iliac arteries. 4. There is some scattered colonic diverticulosis. Electronically signed by: Alonso Garcia MD (03/09/2020 4:56 PM) [id number]
--- NOTE | 2020-03-09 17:11 | PHYS DOC ---
Past Medical History Past Medical History: Arthritis, CHF, Hypertension Past Surgical History: Hysterectomy, Pacemaker Additional Past Surgical Histo: GALLSTONES Smoking Status: Never Smoker Alcohol Use: Occasionally Drug Use: None General Adult EDM: Chief Complaint: MECHANICAL FALL HPI: HPI: Patient is a 89 year old female who presents with complaints of left scapular pain that she currently rates at a 0 out of 10 pain stating that approximately 10 days ago she was walking in her kitchen and the next thing she knew she woke up and was lying on the ground when she got up she called her daughter and told her that she fell. Patient discussed the fall with her daughter and they decided since she did not have any pain or discomfort that she did not seek medical care. Patient states that she does not have any recent history of falls or syncopal episodes. Patient states approximately 2 to 3 days ago she noticed some pain in her left scapula that radiates to her anterior chest when she moves her left upper extremity, breathes deeply, or rotates her head to the right. Patient states that when she does these movements her pain reaches a 1-2/10 pain scale. But then resolves to a 0/10 pain scale when she is still or is not moving her head to the right or not breathing deeply. Patient states that she did take Tylenol to relieve the pain at approximately 11:00 this morning, and has not had any pain since even with deep breathing moving head to the right or moving her left upper extremity. Patient states that she is not all that concerned with her symptoms, but her daughter had convinced her to come into the emergency department to be evaluated. Patient describes her pain as a sharp sensation that quickly resolves when she stops moving. Patient denies any recent injury that could cause this pain in her scapular area and can only recall the fall approximately 10 days ago. Patient states that she has not tried any therapies at home to relieve the pain just states that it becomes better when she does not make the movements that elicit her pain. Patient denies any radiation of the pain, denies any numbness, or tingling. Patient states she is a non-smoker. 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 And states a past surgical history of a hysterectomy when she was in her 50s and an appendectomy when she was in her 20s and had a pacemaker placement greater than 10 years ago. Patient also indicates she has had bilateral cataract surgery approximately 20 years ago. Patient denies any recent fever or chills, any vision changes, denies nasal congestion or sore throat, denies cough or shortness of breath. Patient currently denies chest pain or swelling of her extremities. Patient denies abdominal pain, nausea, vomiting, diarrhea, blood in her stools, or constipation. Patient denies any problems urinating. Patient denies any back pain other than her left scapula that hurts when she moves however since taking Tylenol at 11 AM this morning has had no pain. Patient denies any skin rashes, headaches, focal weaknesses or sensory changes, or tingly sensations. Patient denies any increased thirst or increased urination problems. Patient denies any swelling of her glands, any recent life changes, depressions, anxieties, homicidal or suicidal ideations. Patient lives by herself and performs all ADLs by herself. Patient's daughter is at bedside and confirms this. Patient's daughter states she does not have any concerns with patient's mentation and agrees that there are no mental status changes at the time of the fall nor at any time up to her presentation to the emergency department today. Review of Systems: Review of Systems: Constitutional: Denies fever or chills. Eyes: Denies change in visual acuity. HENT: Denies nasal congestion or sore throat. Respiratory: Denies cough or shortness of breath. Cardiovascular: Denies chest pain at this time, however did complain of left scapular pain that radiated to left chest with movement of left upper extremity, deep breathing, moving head to the right. Denies edema, and currently denies any pain since taking Tylenol at 11 AM today. GI: Denies abdominal pain, nausea, vomiting, bloody stools or diarrhea. : Denies dysuria. Musculoskeletal: Denies back pain or joint pain. Complains of left scapular pain that radiated to chest with movement of left upper extremity, deep breathing, moving head to the right, however has resolved and had no pains or discomfort since taking Tylenol at 11 AM today Integument: Denies rash. Neurologic: Denies headache, focal weakness or sensory changes. Endocrine: Denies polyuria or polydipsia. Lymphatic: Denies swollen glands. Psychiatric: Denies depression or anxiety, denies homicidal or suicidal elkin ations. Heart Score: Risk Factors: Risk Factors: DM, Current or recent (<one month) smoker, HTN, HLP, family history of CAD, obesity. Risk Scores: Score 0 - 3: 2.5% MACE over next 6 weeks - Discharge Home Score 4 - 6: 20.3% MACE over next 6 weeks - Admit for Clinical Observation Score 7 - 10: 72.7% MACE over next 6 weeks - Early Invasive Strategies Family History: Family History: Patient states she is unaware of any past medical problems of her mother or father or her brothers or sisters. Allergies: Allergies: Patient denies any allergies to medications. Allergies Coded Allergies Type Severity Reaction Last Updated Verified No Known Drug Allergies 03/06/14 No Physical Exam: PE: Constitutional: Well developed, well nourished, no acute distress, non-toxic appearance. HENT: Normocephalic, atraumatic, bilateral external ears normal, oropharynx moist, no oral exudates, nose normal. Eyes: Patient's pupils irregular related to bilateral cataract surgery pupils measuring 2 mm, EOMI, conjunctiva normal, no discharge. Neck: Normal range of motion, no tenderness, supple, no stridor. Cardiovascular:Heart rate regular rhythm, no murmur heart sounds S1-S2, no abnormalities noted per auscultation. Lungs & Thorax: Bilateral breath sounds clear to auscultation all lung michaels. Abdomen: Bowel sounds normal all 4 quadrants, soft, no tenderness, no masses, no pulsatile masses. Skin: Warm, dry, no erythema, no rash, pacemaker device noted just under skin left upper chest. Back: No tenderness, no CVA tenderness. Extremities: No tenderness, no cyanosis, no clubbing, ROM intact, no edema. No pain elicited with AROM/PROM however patient states her pain has completely resolved since taking Tylenol at 11 AM. Neurologic: Alert and oriented X 3, normal motor function, normal sensory function, no focal deficits noted. Psychologic: Affect normal, judgement normal, mood normal, no homicidal or suicidal ideation. Current Patient Data: Labs: Laboratory Tests Test 03/09/20 15:40 White Blood Count 3.3 x10^3/uL (4.0-11.0) L Red Blood Count 3.90 x10^6/uL (3.50-5.40) Hemoglobin 12.2 g/dL (12.0-15.5) Hematocrit 36.3 % (36.0-47.0) Mean Corpuscular Volume 93 fL (79-100) Mean Corpuscular Hemoglobin 31 pg (25-35) Mean Corpuscular Hemoglobin Concent 34 g/dL (31-37) Red Cell Distribution Width 14.5 % (11.5-14.5) Platelet Count 232 x10^3/uL (140-400) Neutrophils (%) (Auto) 60 % (31-73) Lymphocytes (%) (Auto) 23 % (24-48) L Monocytes (%) (Auto) 10 % (0-9) H Eosinophils (%) (Auto) 6 % (0-3) H Basophils (%) (Auto) 1 % (0-3) Neutrophils # (Auto) 2.0 x10^3/uL (1.8-7.7) Lymphocytes # (Auto) 0.7 x10^3/uL (1.0-4.8) L Monocytes # (Auto) 0.3 x10^3/uL (0.0-1.1) Eosinophils # (Auto) 0.2 x10^3/uL (0.0-0.7) Basophils # (Auto) 0.0 x10^3/uL (0.0-0.2) Sodium Level 140 mmol/L (136-145) Potassium Level 4.0 mmol/L (3.5-5.1) Chloride Level 106 mmol/L (98-107) Carbon Dioxide Level 25 mmol/L (21-32) Anion Gap 9 (6-14) Blood Urea Nitrogen 15 mg/dL (7-20) Creatinine 1.3 mg/dL (0.6-1.0) H Estimated GFR (Cockcroft-Gault) 46.7 BUN/Creatinine Ratio 12 (6-20) Glucose Level 86 mg/dL (70-99) Calcium Level 8.1 mg/dL (8.5-10.1) L Total Bilirubin 0.2 mg/dL (0.2-1.0) Aspartate Amino Transferase (AST) 15 U/L (15-37) Alanine Aminotransferase (ALT) 9 U/L (14-59) L Alkaline Phosphatase 86 U/L (46-116) Total Protein 6.3 g/dL (6.4-8.2) L Albumin 2.9 g/dL (3.4-5.0) L Albumin/Globulin Ratio 0.9 (1.0-1.7) L Laboratory Tests 03/09/20 15:40 Laboratory Tests 03/09/20 15:40 Vital Signs: Vital Signs Date Time Temp Pulse Resp B/P (MAP) Pulse Ox O2 Delivery O2 Flow Rate FiO2 03/09/20 15:00 98.4 61 14 163/102 (122) 100 Room Air 98.4 EKG: EKG: EKG performed at 1714 shows heart rate of 60 bpm AV paced rhythm reviewed by ER attending Dr. Padilla Radiology/Procedures: Radiology/Procedures: []PROCEDURE: CT CHEST ABDOMEN PELVIS WO CT CHEST ABDOMEN PELVIS WO Indication: Fall, syncope, pain Technique: Noncontrast CT imaging was performed of the chest, abdomen, pelvis, multiplanar reconstruction images submitted. One or more of the following individualized dose reduction techniques were utilized for this examination: 1. Automated exposure control 2. Adjustment of the mA and/or kV according to patient size 3. Use of iterative reconstruction technique. Comparison: None CHEST: Findings: There is motion degradation. There is small dependent left pleural effusion, density measurements suggestive of more simple fluid about 12 Hounsfield units. There is no pneumothorax. Heart is enlarged. There is prominent coronary calcification. Thoracic aortic caliber is within normal limits, scattered plaque. There is dual lead left electronic cardiac device. No significantly enlarged nodes are identified of the chest. There is no lobar consolidation, mild compressive atelectasis left lower lobe near effusion. Thoracic vertebral body stature is overall maintained. There is multilevel thoracic degenerative disc disease. There are minimally displaced left posterior fifth and sixth rib fractures and nondisplaced left posterior seventh rib fracture. IMPRESSION: 1. There are minimally displaced acute left posterior fifth and sixth rib fractures and nondisplaced left posterior seventh rib fracture. There is small dependent left pleural effusion. 2. There is coronary calcification. Abdomen pelvis FINDINGS: Accurate evaluation of the abdominal visceral organs is limited without intravenous contrast, no obvious focal abnormality identified of the liver, spleen, or pancreas. There is no significant hydronephrosis of either kidney. Some calcifications of the renal hilar regions bilaterally are likely in part vascular in etiology. However there are also some foci of likely in the renal collecting systems including a couple of foci inferior and the left about 1 to 2 mm and at least one on the right probably in the collecting system about 2 to 3 mm. There is exophytic 19 mm focus of density medial right kidney with density measurements of a cyst 13 Hounsfield units. There is atherosclerotic calcification of the abdominal aorta and branches. There is also more significant stenosis of the distal left common iliac artery/proximal internal and external iliac arteries. There is cholelithiasis. There is no significant adrenal nodularity. Accurate evaluation of bowel is limited without oral contrast. Bowel is not significantly dilated. There is no free air or significant free fluid. There is scattered colonic diverticulosis. There is advanced degenerative disc disease variably L3-4 through L5-S1 and also at T12-L1, to a lesser degree at L2-3. There is grade 1 anterior spondylolisthesis L2-3 through L5-S1, multilevel lumbar facet degenerative change. There is variable lateral recess stenosis L2-3 through L4-5 also multilevel lumbar neural foramina compromise greatest on the right at L4-5 and L5-S1 and on the left L5-3 through L5-S1. There is also inferior thoracic neural foramina compromise. There is mild reverse S-shaped curvature of the lumbar spine. There is also some atherosclerotic calcification of the visualized arteries in the legs bilaterally. 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 There is mild superior height loss of T11 otherwise difficult to characterize. IMPRESSION: 1. There is mild superior height loss of T11 vertebral body of uncertain chronicity and otherwise difficult to accurately characterize. Otherwise no significant acute abnormality is identified of the abdomen or pelvis. 2. There are small left renal calculi. 3. Calcified plaque results in stenosis of the distal left common iliac artery/origins left internal and external iliac arteries. 4. There is some scattered colonic diverticulosis. Electronically signed by: Sherri Caruso MD (03/09/2020 4:56 PM) [id number] DICTATED and SIGNED BY: SHERRI CARUSO MD DATE: 03/09/20 165 PROCEDURE: CT HEAD AND CERVICAL SPINE WO Exam: CT head and cervical spine without contrast INDICATION: Fall, syncope TECHNIQUE: Sequential axial images through the head and cervical spine were obtained without the administration of IV contrast. Comparisons: 04/23/2019 FINDINGS: Head: No focal parenchymal lesion or hemorrhage is identified. There is no midline shift or sulcal effacement. No acute vascular territory infarction is identified. [place]-white distinction is preserved. The ventricular system is within normal limits without compression hydrocephalus. The basal cisterns are well maintained. Mild extra cranial soft tissue scalp contusion overlying the frontal region. The visualized portions of the paranasal sinuses and mastoid air cells are well-pneumatized. No acute fractures. Cervical spine: Redemonstrated fracture at the base of the dens not significant changed compared to the prior exam. There is anterior listhesis of C1 on C2 measuring 5 mm which is new when compared to the prior study. Vertebral body heights are well-maintained. There is straightening of the cervical spine which may be positional. Acute fracture to the cervical spine is not identified. 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 Visualized paraspinal soft tissues are unremarkable. IMPRESSION: 1. Mild extra cranial soft tissue scalp contusion overlying the frontal region without underlying osseous or intracranial abnormality identified. 2. Redemonstration of fracture through the base of the dens of C2. Since prior exam there is a increased anterolisthesis of C1 on C2 measuring approximately 5 mm. 3. No acute fracture identified in the cervical spine. Exposure: One or more of the following in the visualized dose reduction techniques were utilized for this examination: 1. Automated exposure control 2. Adjustment of the MA and/or KV according to patient size Use of iterative of reconstructive technique Electronically signed by: Khai Coles MD (03/09/2020 4:46 PM) [id number] DICTATED and SIGNED BY: KHAI COLES MD DATE: 03/09/20 1646 Course & Med Decision Making: Course & Med Decision Making Pertinent Labs and Imaging studies reviewed. (See chart for details) 89-year-old female patient presents emergency department stating that she fell 10 days ago, does not remember the fall, but got called her daughter. Patient states that she had no pain at the time so she did not seek medical attention. Patient states since the fall 10 days ago she started noticing some pain in her lower ribs and her left scapular area. Patient describes her pain as a 1-2 out of 10 currently. Concerning for possible TIA for reason as to the syncopal episode CAT scan of the head was ordered and neck, also a CAT scan of the chest abdomen pelvis to rule out acute fracture from fall. EKG was performed and showed a paced rhythm without ectopy or concerns. Her urine is not infected. Imaging did reveal however acute rib fractures that were nondisplaced. The CT of the head was non-concerning for stroke and had no acute intracranial disc repancies per radiologist report. Patient's C-spine CT however showed changes from previous CT, due to this neurosurgery was consulted who was well aware of the patient. Spoke with Dr. Duvall's nurse practitioner Sabra who reviewed the images and case with Dr. Montaño, it was recommended that she go home with a soft collar and to follow-up with their office soon, Sabra the nurse practitioner stated she would call the patient in the morning to set up an appointment. Discussed findings with patient and also discussed importance for use of incentive spirometry. Gave detailed instructions on how to use incentive spirometer, patient return satisfactory demonstration of incentive spirometry use. A soft collar was placed on the patient who stated it was comfortable and stated that she would talk to Sabra tomorrow morning but would prefer to see her neurosurgeon at [facility]. Patient is currently pain- free, was given discharge instructions to home to use [id number] Tylenol for pain or discomfort, use her incentive spirometer at least 10 times daily until otherwise directed by her family physician, and to follow-up with neurosurgery regarding findings of her CAT scans. Copies of her CAT scans were given to patient so that she may see her physician soon. Patient was agreeable to home care instructions, family was in room during home care instructions and agreed that discharge to home was appropriate. Patient had no further questions or concerns. Return to emergency department precautions and concerns were reviewed with patient patient gave verbal understanding of. Patient discharged to home self-care. Marcy Disclaimer: Marcy Disclaimer: This electronic medical record was generated, in whole or in part, using a voice recognition dictation system. Departure Departure Impression: Primary Impression: C2 cervical fracture Qualified Codes: S12.121S - Other nondisplaced dens fracture, sequela Additional Impressions: Rib fractures Qualified Codes: S22.42XA - Multiple fractures of ribs, left side, initial encounter for closed fracture Deficient knowledge of incentive spirometer Deficient knowledge of incentive spirometry Referrals: UNKNOWN PCP NAME (PCP) Patient Instructions: Cervical Spine Fracture, Stable, Incentive Spirometer, Rib Fracture Additional Instructions: Use [id number] Tylenol for pain, leave soft collar on until followed up with your spine surgeon, please use incentive spirometry at least 10 times daily until rib fractures are healed. Please follow-up with your primary care doctor for further evaluation of your rib fractures. Please return to the emergency department for any increased shortness of breath, chest pain, or further concerns. Dr. montes de oca nurse practitioner Sabra will call you tomorrow for an appointment, or you can see your own spine surgeon. Justicifation of Admission Dx: Justifications for Admission: Justification of Admission Dx: N/A AJAY AMAYA APRN Mar 09, 2020 17:10
[2020-03-09 17:43] LABS: BILIRUBIN,URINE NEGATIVE (NEG); CLARITY,URINE CLEAR; COLOR,URINE YELLOW; NITRITE,URINE NEGATIVE (NEG); PH,URINE 6.5 (<5.0-8.0); PROTEIN,URINE NEGATIVE (NEG-TRACE)
[2020-03-09 17:48] LABS: BACTERIA,URINE MANY /HPF (0-FEW)
[2020-03-09 17:49] LABS: HYALINE CASTS, URINE MODERATE /HPF; SQUAMOUS EPITHELIAL CELL,UR MOD /LPF
[2020-03-09 19:51] VITALS: BP 182/96
== END 2020-03-09 20:05 | disposition home or self-care (01) ==
LOC: ER 14:51
DX: S22.42XA Multiple fractures of ribs, left side, initial encounter for closed fracture (principal); S12.1 Fracture of second cervical vertebra; S00.03XA Contusion of scalp, initial encounter; K57.30 Diverticulosis of large intestine without perforation or abscess without bleeding; N20.0 Calculus of kidney; J90 Pleural effusion, not elsewhere classified; R55 Syncope and collapse; M54.6 Pain in thoracic spine; M54.5 Low back pain; W18.30XA Fall on same level, unspecified, initial encounter; Y93.89 Activity, other specified; Y92.89 Other specified places as the place of occurrence of the external cause; Y99.8 Other external cause status
CPT/HCPCS: 36415; 70450; 71250; 72125; 74176; 80053; 81001; 82553; 83880; 84484; 85025; 87086; 99285-25